=== PATIENT | male | born 1995 | race Caucasian/White ===

== ENCOUNTER 2018-03-23 09:28 | Outpatient (CLI) | payer OTHER ==
[2018-03-23 10:14] LABS: eGFR (Non-African) > 60
== END 2018-03-23 09:38 ==
LOC: LAB 09:28
PROVIDERS: ATTEND Family Medicine
DX: F84.5 Asperger's syndrome (principal); Z00.00 Encounter for general adult medical examination without abnormal findings
CPT/HCPCS: 36415; 80053; 80061